=== PATIENT | male | born 1975 | race Hispanic/Latino ===

== ENCOUNTER 2022-01-30 16:49 | Emergency (ER) | payer SELFPAY ==
[2022-01-30] MEDS ORDERED: Ibuprofen 200 MG TAB ONE (17:07)
== END 2022-01-30 18:21 | disposition home or self-care (01) ==
LOC: CSHERS 16:49
DX: J11.1 Influenza due to unidentified influenza virus with other respiratory manifestations (principal); I10 Essential (primary) hypertension
CPT/HCPCS: 87804; 99283